=== PATIENT | female | born 1960 | race Caucasian/White ===

== ENCOUNTER 2018-12-31 17:18 | Emergency (ER) | payer MEDICAID, OTHER ==
[2018-12-31 18:26] LABS: ADD MAN DIFF? NO
[2018-12-31 18:27] LABS: BASOPHILS % 0.4 % (0.0-2.0); EOSINOPHILS # 0.2 10^3/ul (0.0-0.5); EOSINOPHILS % 1.7 % (0.0-7.0); HEMATOCRIT 35.5 % (37.0-47.0); HEMOGLOBIN 11.5 g/dl (12.0-16.0); LYMPHOCYTES # 1.8 10^3/ul (0.8-2.9); LYMPHOCYTES % 17.6 % (15.0-51.0); MEAN CORPUSCULAR HEMOGLOBIN 25.7 pg (29.0-33.0); MEAN CORPUSCULAR HGB CONC 32.4 g/dl (32.0-37.0); MEAN CORPUSCULAR VOLUME 79.2 fl (82.0-101.0); MEAN PLATELET VOLUME 10.1 fl (7.4-10.4); MONOCYTE # 0.7 10^3/ul (0.3-0.9); MONOCYTES % 7.1 % (0.0-11.0); NEUTROPHIL # 7.4 10^3/ul (1.6-7.5); NEUTROPHILS % 72.5 % (39.0-77.0); PLATELET COUNT 286 10^3/UL (140-415); RED BLOOD COUNT 4.48 10^6/ul (4.20-5.40); RED CELL DISTRIBUTION WIDTH 14.4 % (11.5-14.5)
[2018-12-31 18:27] LABS: WHITE BLOOD COUNT 10.2 10^3/ul (4.8-10.8)
[2018-12-31 18:46] LABS: INR 0.96; PROTIME 12.9 Sec (11.9-14.9)
[2018-12-31 18:47] LABS: ALANINE AMINOTRANSFERASE 33 IU/L (13-69); ALBUMIN 4.3 g/dl (3.3-4.9); ALBUMIN/GLOBULIN RATIO 1.13; ALKALINE PHOSPHATASE 185 IU/L (42-121); ANION GAP 9 (5-13); ASPARTATE AMINO TRANSFERASE 26 IU/L (15-46); BILIRUBIN,INDIRECT 0.2 mg/dl (0-1.1); BILIRUBIN,TOTAL 0.2 mg/dl (0.2-1.3); BLOOD UREA NITROGEN 19 mg/dl (7-20); CALCIUM 9.9 mg/dl (8.4-10.2); CARBON DIOXIDE 29 mmol/L (21-31); CHLORIDE 102 mmol/L (97-110); CREATINE KINASE 41 IU/L (23-200); Estimated GFR > 60 mL/min (>60); GLUCOSE 179 mg/dl (70-220); PARTIAL THROMBOPLASTIN TIME 26.5 Sec (23.0-35.0); POTASSIUM 4.1 mmol/L (3.5-5.1); SODIUM 140 mmol/L (135-144); TOTAL PROTEIN 8.1 g/dl (6.1-8.1)
[2018-12-31] MEDS: morphine 4 MG/ML VIAL IV (18:51)
[2018-12-31] MEDS: ONDANSETRON 4 MG INJ IV ×2 (18:51→22:08)
[2018-12-31 18:55] LABS: CK INDEX 0.9; CK-MB 0.35 ng/ml (0.0-2.4)
[2018-12-31 19:00] LABS: TROPONIN-I < 0.012 ng/ml (0.000-0.120)
[2018-12-31] MEDS: HYDROmorphONE 1 MG/ML SYG IV (22:09)
== END 2018-12-31 22:45 | disposition home or self-care (01) ==
LOC: E/R 17:18
DX: S22.43XA Multiple fractures of ribs, bilateral, initial encounter for closed fracture (principal); I10 Essential (primary) hypertension; E11.9 Type 2 diabetes mellitus without complications; S30.1XXA Contusion of abdominal wall, initial encounter; W18.30XA Fall on same level, unspecified, initial encounter; Y92.9 Unspecified place or not applicable
CPT/HCPCS: 71250; 76705; 80053; 82550; 82553; 84484; 85025; 85610; 85730; 93005; 96374; 96375; 96376; 99285-25